=== PATIENT | male | born 1995 | race Caucasian/White ===

== ENCOUNTER 2025-05-20 17:56 | Emergency (ER) | payer MEDICAID ==
[~2025-05-20] VITALS: Ht 182.9 cm; Wt 72.7 kg
[2025-05-20 18:12] VITALS: BP 123/85; PULSE 95; RESP 18; O2SAT 100
--- NOTE | 2025-05-20 19:38 | Physician Documentation ---
HPI ~ General Chief Complaint: Medication Request Stated Complaint: MED REQUEST Time Seen by MD: 18:47 Primary Medical Doctor: NONE History of Present Illness HPI Comments 29-year-old male dependent on Suboxone b.i.d. presents to the emergency department for one time dose due to him leaving his prescription at the recent rehab facility accidentally upon departure. Reports he will return to the rehab facility in the morning to obtain prescription. Medication Reconciliation Allergies: Coded Allergies: No Known Allergies (Unverified , 05/20/25) Past Medical History Past Medical History: No Pertinent History Past Surgical History: no surgical history Alcohol Use: Occasionally Drug Use: marijuana Lives with: Mother Lives In: Home Occupation: student Review of Systems All Other Systems at this time: Reviewed and Negative Gastrointestinal: Denies: nausea, vomiting, diarrhea Musculoskeletal: Denies: muscle pain Physical Exam Physical Exam Vital Signs: Temperature: 97.6, Source: Temporal, Heart Rate: 95, Respiratory Rate: 18, BP: 123/85, Pulse Oximetry: 100, Weight: 72.730 General Appearance: alert, WD/WN, no apparent distress Pupils/EOM/Fundus: PERRLA Respiratory: no respiratory distress Chest: no accessory muscle use Cardiovascular: normal peripheral pulses Gastrointestinal: normal palpation Extremities: normal inspection Neurologic: oriented x4 Motor / Sensory: no motor deficit, no sensory deficit Thought/Hallucinations: normal thought pattern Skin: warm/dry Progress Results/Orders Results/Orders Completed Orders - KOBE MARAVILLA Buprenorphine/Naloxone Sl Film (Suboxone (05/20/25 19:40) Buprenorphine/Naloxone Sl Film (Suboxone (05/20/25 19:40) Medications Received in ER Medications (Trade) Dose Ordered Sig/Konstantin Route PRN Reason Start Time Stop Time Status Last Admin Dose Admin (Suboxone 8MG-2MG SL film) 1 film ONCE ONCE SL 05/20/25 19:40 05/20/25 19:41 DC 05/20/25 19:49 1 FILM Vital Signs 05/20/25 05/20/25 18:12 19:46 Temp 97.6 97.6 Pulse 95 Resp 18 B/P (MAP) 123/85 Pulse Ox 100 Medical Decision Making Additional Comment 29-year-old male with a pending on medically assisted therapy. Patient's prescription was left at the rehab custodial in which he needs to return to in the morning obtained. He has not received his nighttime dose of Suboxone 8 mg/2 mg. Presents to the emergency department for one time dosing. Denies recent recreational use. In no acute withdrawal at this time. Patient received medical assisted therapy and discharged without incident. Departure Disposition: HOME / SELF CARE / HOMELESS Impression: Primary Impression: Encounter for monitoring Suboxone maintenance therapy Condition: Stable Discharge Instructions: Medical Screening Exam Additional Instructions: Tonight in the emergency department you received a one time dose of Suboxone 8mg/2mg. Please obtain your medication from the program facility and continue as directed. Thank you for visiting emergency department [facility]. Referrals: NO PRIMARY CARE PROVIDER (PCP) Education Educated: Patient Educated regarding: diagnosis, treatment Signature Scribe Signature: . Attestation: . KOBE MARAVILLA [facility] May 20, 2025 19:38
[2025-05-20] MEDS ORDERED: buprenorphine/naloxone 8MG-2MG SUBlingual film SL SCH (19:40)
[2025-05-20 19:46] VITALS: TEMP 97.6
[2025-05-20] MEDS: buprenorphine/naloxone 8MG-2MG SUBlingual film SL ONE (19:49)
== END 2025-05-20 19:51 | disposition home or self-care (01) ==
LOC: ER 17:56
DX: Z51.81 Encounter for therapeutic drug level monitoring (principal); F12.90 Cannabis use, unspecified, uncomplicated; Z76.0 Encounter for issue of repeat prescription; Z72.89 Other problems related to lifestyle
CPT/HCPCS: 99283